=== PATIENT | male | born 1995 | race Caucasian/White ===

== ENCOUNTER 2023-01-30 13:11 | Emergency (ER) | payer OTHER, BC | END 2023-01-30 14:07 | disposition home or self-care (01) | LOC: FB.ED 13:11 | DX: S06.9XAA Unspecified intracranial injury with loss of consciousness status unknown, initial encounter (principal); E66.9 Obesity, unspecified; Z68.33 Body mass index [BMI] 33.0-33.9, adult; Z86.16 Personal history of COVID-19; V84.9XXA Unspecified occupant of special agricultural vehicle injured in nontraffic accident, initial encounter | CPT/HCPCS: 99283 ==